=== PATIENT | male | born 1950 | race Caucasian/White ===

== ENCOUNTER → 2017-01-27 | Outpatient (CLI) | payer MEDICARE, OTHER | LOC: M SMT 08:37 | PROVIDERS: ATTEND Nurse Practitioner Women's Health | DX: Z12.5 Encounter for screening for malignant neoplasm of prostate (principal) | CPT/HCPCS: 36415; G0103; G0463 ==

== ENCOUNTER 2017-09-09 14:22 | Emergency (ER) | payer MEDICARE, OTHER | END 2017-09-09 15:42 | disposition home or self-care (01) | LOC: M ED 14:22 | DX: S43.401A Unspecified sprain of right shoulder joint, initial encounter (principal); V00.328A Other snow-ski accident, initial encounter; Y92.828 Other wilderness area as the place of occurrence of the external cause; Y93.24 Activity, cross country skiing; I10 Essential (primary) hypertension; Z79.899 Other long term (current) drug therapy | CPT/HCPCS: 73030 ==

== ENCOUNTER 2018-11-26 21:44 | Emergency (ER) | payer MEDICARE, OTHER ==
[~2018-11-26] VITALS: Ht 182.9 cm; Wt 104.5 kg
[~2018-11-26 21:44] MED LIST: ATOR80TA59 PO; BISOPROLOL-HCTZ PO; CETI10TA PO; CIAL5TAB PO; IBUP-1022 PO; SING10TA32 PO; TAMSULOSIN PO; VITA200016 PO; [UNRECOGNIZED DRUG - CODE] TOP
[2018-11-26 21:45] VITALS: BP 163/76
[2018-11-26] MEDS ORDERED: ADACEL/BOOSTRIX VACCINE (DIPHTH/PERTUSS/ACELL/TETANUS)0.5ML SYR (90715) IM ONE (22:00)
[2018-11-26] MEDS ORDERED: AUGM875T28 PO (22:12)
[2018-11-26] MEDS ORDERED: DERMABOND TOPICAL SKIN ADHESIVE TOP ONE (22:15)
[2018-11-26] MEDS ORDERED: AUGMENTIN 875 MG TAB PO ONE (22:15)
== END 2018-11-26 22:35 | disposition home or self-care (01) ==
LOC: M ED 21:44
DX: S01.91XA Laceration without foreign body of unspecified part of head, initial encounter (principal); S00.85XA Superficial foreign body of other part of head, initial encounter; X58.XXXA Exposure to other specified factors, initial encounter; Y92.9 Unspecified place or not applicable; Y93.9 Activity, unspecified; Y99.9 Unspecified external cause status; N40.0 Benign prostatic hyperplasia without lower urinary tract symptoms; I10 Essential (primary) hypertension; E78.5 Hyperlipidemia, unspecified; Z79.899 Other long term (current) drug therapy

== ENCOUNTER → 2018-12-17 | Outpatient (CLI) | payer MEDICARE, OTHER ==
[~2018-12-17] MED LIST changes: +AUGM875T28 PO
== END ==
LOC: M SMT 15:16
PROVIDERS: ATTEND Nurse Practitioner Women's Health
DX: Z12.5 Encounter for screening for malignant neoplasm of prostate (principal)
CPT/HCPCS: 36415; G0103

== ENCOUNTER → 2018-12-21 | Outpatient (CLI) | payer MEDICARE, OTHER | LOC: M SMT 08:48 | PROVIDERS: ATTEND Nurse Practitioner Women's Health | DX: R97.20 Elevated prostate specific antigen [PSA] (principal) | CPT/HCPCS: 36415; G0463 ==

== ENCOUNTER → 2019-06-25 | Outpatient (CLI) | payer MEDICARE, OTHER ==
[2019-06-27 05:47] LABS: PSA % FREE 21.8 % (.); PSA FREE 1.09 ng/mL
== END ==
LOC: M PLALAB 09:41
PROVIDERS: ATTEND Nurse Practitioner Women's Health
DX: R97.20 Elevated prostate specific antigen [PSA] (principal)

== ENCOUNTER → 2019-12-17 | Outpatient (CLI) | payer MEDICARE, OTHER ==
[2019-12-20 23:07] LABS: PSA FREE 0.98 ng/mL; PSA TOTAL 4.9 ng/mL (0.0-4.0)
== END ==
LOC: M PLALAB 13:38
PROVIDERS: ATTEND Nurse Practitioner Women's Health
DX: R97.20 Elevated prostate specific antigen [PSA] (principal)

== ENCOUNTER → 2020-07-07 | Outpatient (REF) | payer MEDICARE, OTHER ==
[~2020-07-07] MED LIST changes: +BISO5TAB2 PO; +TAMS1CAP17 PO
== END ==
LOC: M PLALAB 13:27
PROVIDERS: ATTEND Nurse Practitioner Women's Health
DX: R97.20 Elevated prostate specific antigen [PSA] (principal)

== ENCOUNTER → 2020-10-06 | Outpatient (CLI) | payer MEDICARE, OTHER ==
[2020-10-09 00:06] LABS: PSA TOTAL 3.6 ng/mL (0.0-4.0)
== END ==
LOC: M LAB 16:55
PROVIDERS: ATTEND Nurse Practitioner Women's Health
DX: R97.20 Elevated prostate specific antigen [PSA] (principal)

== ENCOUNTER → 2021-04-27 | Outpatient (CLI) | payer MEDICARE, OTHER | LOC: M LAB 16:53 | PROVIDERS: ATTEND Nurse Practitioner Family | DX: R97.20 Elevated prostate specific antigen [PSA] (principal) ==

== ENCOUNTER 2021-06-25 09:03 | Outpatient (CLI) | payer MEDICARE, OTHER ==
[~2021-06-25] VITALS: Ht 185.4 cm; Wt 97.0 kg
[~2021-06-25 09:03] MED LIST changes: +ALBUTEROL 90 MCG/ACT 8GM HFA INHALER INH PRN; +ALBUTEROL SULFATE 2.5 MG/0.5 ML INH NEB SOLN INH PRN; +BISO1TAB18 PO; -BISO5TAB2 PO; +EPINEPHrine INJ 1 MG/ML 1ML AMP IM PRN; +NS 1,000 ML IV SCH; +diphenhydrAMINE 50MG/ML VIAL (J1200) IV PRN; +methylPREDNISolone 125MG 2ML VIAL IV PRN
[2021-06-25] MEDS ORDERED: CASIRIVIMAB/IMDEVIMAB 1,200 MG in NS 250 ML IV ONE (09:30)
[2021-06-25] MEDS ORDERED: ACETAMINOPHEN TAB 650MG DOSE (2X325MG) PO ONE (09:30)
[2021-06-25 09:55] VITALS: BP 136/65
[2021-06-25 10:25] VITALS: BP 120/56
[2021-06-25 10:55] VITALS: BP 127/55
[2021-06-25 11:55] VITALS: BP 139/65
== END 2021-06-25 11:55 | disposition home or self-care (01) ==
LOC: M OPCLI4PR 09:03
PROVIDERS: ATTEND Physician Assistant
DX: U07.1 COVID-19 (principal)

== ENCOUNTER → 2022-03-10 | Outpatient (CLI) | payer MEDICARE, OTHER ==
[~2022-03-10] MED LIST changes: -ALBUTEROL 90 MCG/ACT 8GM HFA INHALER INH PRN; -ALBUTEROL SULFATE 2.5 MG/0.5 ML INH NEB SOLN INH PRN; -EPINEPHrine INJ 1 MG/ML 1ML AMP IM PRN; -NS 1,000 ML IV SCH; -diphenhydrAMINE 50MG/ML VIAL (J1200) IV PRN; -methylPREDNISolone 125MG 2ML VIAL IV PRN
== END ==
LOC: M WUC 12:01
PROVIDERS: ATTEND Physician Assistant
DX: J20.8 Acute bronchitis due to other specified organisms (principal)

== ENCOUNTER → 2023-05-24 | Outpatient (CLI) | payer MEDICARE, OTHER ==
[~2023-05-24] MED LIST changes: +ALBU8.5H INH; +BREO1INH INH; +FINA5TAB2 PO; +FLON1SPR; +GARL500C2 PO; +MONT-5 PO; -SING10TA32 PO
== END ==
LOC: M WUC 11:12
PROVIDERS: ATTEND Internal Medicine Pulmonary Disease
DX: J45.40 Moderate persistent asthma, uncomplicated (principal)